=== PATIENT | male | born 1945 | race Caucasian/White ===

== ENCOUNTER 2016-12-16 09:45 | Day surgery (SDC) | payer MEDICARE ==
[~2016-12-16] VITALS: Ht 172.7 cm; Wt 63.5 kg
[~2016-12-16 09:45] MED LIST: ASCO100089 PO; CHOL200047 PO; LISI-567 PO; MULT1CAP33 PO; PRE20 PO; VERA80TA2 PO; VIT1TABL83 PO
[2016-12-16] MEDS ORDERED: Propofol 10,000 mCg/mL 20 mL Inj ONE (09:46)
[2016-12-16 09:57] VITALS: BP 152/96; PULSE 86; RESP 16; O2SAT 97
[2016-12-16] MEDS ORDERED: HYDR-3825 PO (10:00)
[2016-12-16] MEDS ORDERED: GABA-502 PO (10:00)
[2016-12-16] MEDS ORDERED: ADV250INH IH (10:01)
[2016-12-16] MEDS ORDERED: ALBU8.5H2 INHALATION (10:01)
[2016-12-16] MEDS ORDERED: Ondansetron 2 mg/mL 2 mL Inj IVPUSH PRN (10:15)
[2016-12-16] MEDS ORDERED: Lactated Ringer's 1,000 ML IV SCH (10:15)
[2016-12-16] MEDS ORDERED: MetoCLOpramide 5 mg/mL 2 mL Inj IVPUSH PRN (10:15)
[2016-12-16] MEDS: Lactated Ringer's 1,000 ML IV ONE ×2 (10:22→10:37)
[2016-12-16 10:39] VITALS: BP 123/76; PULSE 78; RESP 14; O2SAT 98
[2016-12-16 10:48] VITALS: BP 154/95; PULSE 85; RESP 14; O2SAT 99
--- NOTE | 2016-12-16 10:59 | ENDO ---
[address] [address] ENDOSCOPY PROCEDURE PATIENT: NEELA ACEVEDO : 1945 MR#: [id number] ADMIT: 12/16/2016 JOB ID: [id number] DATE OF SERVICE: 12/16/2016 TYPE OF OPERATION: Colonoscopy with biopsy. PREOPERATIVE DIAGNOSIS(ES): Colorectal cancer screening. POSTOPERATIVE DIAGNOSIS(ES): 1. Four sigmoid polyps, largest size 2 mm in diameter, removed by cold biopsy forceps. 2. A 4 mm descending colon polyp, removed by cold biopsy forceps. ANESTHESIA: Monitored anesthesia care. COMPLICATIONS: None. BLOOD LOSS: Minimal. DESCRIPTION OF PROCEDURE: After risks and benefits explained to the patient, informed consent was obtained. After anesthesia administered, colonoscope was then inserted from rectum to cecum. Mucosa carefully examined. Prep of the patient was excellent. After the procedure was done, the scope withdrawn and procedure terminated. FINDINGS: Upon inspection of the anus, no masses, hemorrhoids, ulcers, or fissures that were seen. Throughout the entire examination, there were four sigmoid polyps, removed by cold biopsy forceps, largest size 2 mm in diameter. A 4 mm descending colon removed by cold biopsy forceps. Retroflexion showed small internal hemorrhoids. IMPRESSION: 1. Small internal hemorrhoids. 2. Four 2-mm sigmoid colon polyps removed by cold biopsy forceps. 3. A 4 mm descending colon polyp, removed by cold biopsy forceps. RECOMMENDATION: Await pathology results. If three or more tubular adenoma polyps, the next colonoscopy in three years. If less than three tubular adenoma polyps, the next colonoscopy in five years.
--- NOTE | 2016-12-16 16:44 | PCM.ANEP1 ---
Post Anesthesia Phase 1 PACU Phase 1 Assessment Vital Signs Vital Signs Date Time Temp Pulse Resp B/P Pulse Ox O2 Delivery O2 Flow Rate FiO2 12/16/16 10:48 85 14 154/95 99 Room Air 12/16/16 10:39 36.1 78 14 123/76 98 Room Air 12/16/16 09:57 36.0 86 16 152/96 97 Room Air Anesthetic Administered: MAC Level of Alertness: Awake, talking LINARES's with Equal Strength: Yes Pain: No Nausea or Vomiting: No Cardiovascular Function and Hy: No Oxygen Delivery: Room Air Lungs: Clear to Auscultation, Normal Air Movement Dermatome Level: Full Sensation Complications: No Follow up Care: No Flo Staley MD Dec 16, 2016 16:44
--- NOTE | 2016-12-16 16:44 | PCM.HPANE ---
Patient Data Surgeon Admitting Provider: Attending Provider:Samuel Logan MD Primary Care Physician:Scotty Ventura MD Other Provider:Aleta Laraingham Anesthesia Reason for Visit Encounter Screening For Maligant Neoplasm Of Colon Ht/WT & BMI Body Mass Index Allergies Coded Allergies: divalproex sodium (Verified Allergy, Unknown, 12/15/16) Medications Reported Medications Albuterol HFA (Proair HFA)8.5 Gm Hfa.aer.ad2 Puffs INHALATION Q4H #1 INHALER 12/16/16 Fluticasone/Salmeterol (Advair 250-50 Diskus)60 Puff/Inh Disk1 Puff IH BID #1 DISK Ref 0 12/16/16 Hydrocodone-Acetaminophen 7.5-325 mg 1 Each Tablet1 Tablet PO Q4H PRN For Pain Ref 0 12/16/16 Gabapentin 300 Mg [id number] Mg PO TID Ref 0 12/16/16 Cholecalciferol (Vitamin D3) (Vitamin D3)2,000 Unit Capsule2,000 Unit PO DAILY 12/15/16 Ascorbic Acid (Vitamin C)1,000 Mg Tab.chew1,000 Mg PO DAILY Ref 0 12/15/16 Prednisone (PredniSONE)20 Mg Uiqavv90 Mg PO DIRECTED Ref 0 12/15/16 Multivitamin (Multivitamins)1 Each Capsule1 Each PO DAILY 12/15/16 Lisinopril 20 Mg Ubskqb17 Mg PO DAILY 30 Days Ref 0 12/15/16 Vit B Comp/C/FA/Iron/Vit E (Vitamin B Complex Tablet)1 Each Tablet1 Each PO DAILY 12/15/16 Discontinued Reported Medications Verapamil 80 Mg Aqlejf74 Mg PO TID Ref 0 12/15/16 Stop/Bang Risk Assessment Category Category 1A: Patient has history of documented sleep apnea, and HAS NOT received any narcotic, sedative or anesthesia administration during this stay. Category 1B: Patient has history of documented sleep apnea, and HAS received any narcotic , sedative or anesthesia administration during this stay Category 2: Patient has SUSPECTED Obstructive Sleep Apnea, and HAS received any narcotic , sedative or anesthesia administration during this stay. Category 3: Patient has SUSPECTED Obstructive Sleep Apnea and HAS NOT received narcotic, sedative or anesthesia administration during this stay. Category 4: Outpatient in Procedural Areas with known sleep apnea or who screen positive for High Risk via the STOP/BANG questionnaire. Exam Exam General Appearance: Alert, Oriented X3, Cooperative, No Acute Distress HEENT/AIRWAY: MP 2, Neck Movement (FROM), Mouth Opening (3 FBMO) Lungs: Clear to Auscultation, Normal Air Movement Heart: Exam Unremarkable, Regular Rate/Rhythm, No Murmurs/Rubs/Gallops Plan Impression Patient chart reviewed, patient interviewed and anesthestic plan with risks, benefits, and alternatives discussed, and informed consent obtained. NPO Status: > 8hrs ASA Physical Status: ASA3 Severe Disease Anesthetic Plan: MAC Bene/Risks/Altern/Consents: Yes HP Complete Prior to Induction: Yes Flo Staley MD Dec 16, 2016 07:40
--- NOTE | 2016-12-17 16:22 | PATH ---
SURGICAL PATHOLOGY Attending Physician:Samuel Logan MD CASE STATUS: Signed Out PATIENT NAME: NEELA ACEVEDO PID: [id number] : 1945 DATE COLLECTED:12/16/2016 20:09 SPECIMEN: 1: Colon, Biopsy 2: Colon, Biopsy CLINICAL HISTORY: 1). DESCENDING COLON POLYP 2). SIGMOID COLON POLYPS X4 FINAL DIAGNOSIS: 1.DESCENDING COLON, POLYP, BIOPSY: TUBULAR ADENOMA. 2.SIGMOID COLON, POLYPS, BIOPSIES: TUBULAR ADENOMA IN 1 OF 8 FRAGMENTS. HYPERPLASTIC POLYP IN 3 FRAGMENTS. ICD10 CODE D12.4 D12.5 GROSS DESCRIPTION: The specimen is received in two formalin filled containers labeled with the patient's name. 1). The specimen is sublabeled "descending colon polyp" and consists of 2 portions of tissue which aggregate to 0.3 x 0.3 x 0.2 CM. The specimen is entirely submitted in cassette 1A. 2). The specimen is sublabeled "sigmoid colon polyps" and consists of multiple portions of tissue which aggregate to 0.4 x 0.4 x 0.2 CM. The specimen is entirely submitted in cassette 2A. 12/16/2016 [facility] MICRO DESCRIPTION: See diagnosis. ICD-9 CODES: CPT CODES: 1: 26949 2: 19768 Electronically Signed Out Griselda Larios MD [facility], [place] [address] Technical component performed at [facility], [address] [place] [address] Ave[address], [place], [address]
== END 2016-12-16 23:59 | disposition home or self-care (01) ==
LOC: END 09:45
PROVIDERS: ATTEND Internal Medicine Gastroenterology
DX: Z12.11 Encounter for screening for malignant neoplasm of colon (principal); Z86.010 Personal history of colon polyps; D12.4 Benign neoplasm of descending colon; D12.5 Benign neoplasm of sigmoid colon; I10 Essential (primary) hypertension; K64.8 Other hemorrhoids
CPT/HCPCS: 45380; J7120